=== PATIENT | male | born 1960 | race Caucasian/White ===

== ENCOUNTER 2019-01-29 05:19 | Day surgery (SDC) | payer BC ==
[2019-01-26 16:10] VITALS: BMI 24.5
[~2019-01-29] VITALS: Ht 175.3 cm; Wt 71.6 kg
[2019-01-29] VITALS (12 sets, daily range): BP systolic 101–132; BP diastolic 68–88; PULSE 71–88; RESP 12–20; Ht 175.3 cm; Wt 71.6 kg
[~2019-01-29 05:19] MED LIST: RIVA15TA PO
[2019-01-29] MEDS ORDERED: LACTATED RINGER'S 1,000 ML IV SCH (06:30)
[2019-01-29] MEDS ORDERED: CEFAZOLIN 1 GM INJ ONE (07:00)
[2019-01-29] MEDS ORDERED: SEVOFLURANE 15 MIN ONE (07:00)
[2019-01-29] MEDS ORDERED: MIDAZOLAM 1 MG/ML 2 ML INJ ONE (07:10)
[2019-01-29] MEDS ORDERED: ROPIVACAINE 0.5 % 30 ML VIAL ONE ×2 (07:11→09:21)
[2019-01-29] MEDS ORDERED: POLYMYXIN/BACITRACIN 1L IRRIG IRR ONE (08:21)
[2019-01-29] MEDS ORDERED: POLYMYXIN/BACITRACIN 1L IRRIG ONE (09:21)
[2019-01-29] MEDS ORDERED: NEOMYC/POLYMYX/BACIT 30 GM OINT ONE (09:21)
[2019-01-29] MEDS ORDERED: ROCURONIUM 50 MG INJ ONE (09:24)
[2019-01-29] MEDS ORDERED: ONDANSETRON 4 MG INJ ONE ×2 (09:24→10:10)
[2019-01-29] MEDS ORDERED: PROPOFOL 20 ML ONE (09:24)
[2019-01-29] MEDS ORDERED: LIDOCAINE 2% (SDV) 5 ML INJ ONE (09:24)
[2019-01-29] MEDS ORDERED: NEOSTIGMINE 3 MG/3 ML SYRINGE ONE (09:58)
[2019-01-29] MEDS ORDERED: GLYCOPYRROLATE 0.4 MG INJ ONE (09:58)
[2019-01-29] MEDS ORDERED: MEPERIDINE 25 MG INJ ONE (10:10)
[2019-01-29] MEDS ORDERED: SOD CHLORIDE 0.9% 1,000 ML IV SCH (10:15)
[2019-01-29] MEDS: HYDROmorphONE 1 MG/5 ML IV SYRINGE IV PRN ×2 (10:20→10:25)
[2019-01-29] MEDS ORDERED: FENTAnyl 50 MCG/ML VIAL IV PRN (10:30)
[2019-01-29] MEDS ORDERED: ONDANSETRON 4 MG INJ IV PRN ×2 (10:30)
[2019-01-29] MEDS ORDERED: DIPHENHYDRAMINE 50 MG INJ IV PRN (10:30)
[2019-01-29] MEDS ORDERED: morphine 2 MG INJ IV PRN (10:30)
[2019-01-29] MEDS ORDERED: NALOXONE (0.4 MG/ML) INJ IV PRN (10:30)
[2019-01-29] MEDS ORDERED: HYDROmorphONE 1 MG/5 ML IV SYRINGE IV PRN (10:30)
[2019-01-29] MEDS ORDERED: LABETALOL HCL 20MG INJ IV PRN (10:30)
[2019-01-29] MEDS ORDERED: MEPERIDINE 25 MG INJ IV PRN (10:30)
[2019-01-29] MEDS ORDERED: OXYCODONE/ACETAMINOPHEN (5/325) TAB PO PRN ×2 (10:30)
[2019-01-29] MEDS ORDERED: METOCLOPRAMIDE 10 MG INJ IV PRN (10:30)
== END 2019-01-29 12:34 | disposition home or self-care (01) ==
LOC: SDS 05:19
PROVIDERS: ATTEND Orthopaedic Surgery
DX: S86.011D Strain of right Achilles tendon, subsequent encounter (principal); X58.XXXD Exposure to other specified factors, subsequent encounter
CPT/HCPCS: 27650; 81003; J1170; J2175; J2250; J2405; J2710; J2795; J3010; J0690